=== PATIENT | male | born 1975 | race Caucasian/White ===

== ENCOUNTER 2017-12-19 16:46 | Emergency (ER) | payer BC ==
[~2017-12-19] VITALS: Ht 170.2 cm; Wt 69.9 kg
[2017-12-19 16:48] VITALS: BP 161/88
[2017-12-19] MEDS ORDERED: HYDR-3965 PO (17:22)
[2017-12-19] MEDS ORDERED: PRAV80TA3 PO (17:22)
[2017-12-19] MEDS ORDERED: MUSCLE RELAXER (17:22)
[2017-12-19] MEDS ORDERED: OMEP40CA37 PO (17:22)
[2017-12-19] MEDS ORDERED: CEPH500C5 PO (18:11)
[2017-12-19] MEDS ORDERED: SULF1TAB49 PO (18:11)
== END 2017-12-19 18:37 | disposition home or self-care (01) ==
LOC: ER 16:46
DX: L98.9 Disorder of the skin and subcutaneous tissue, unspecified (principal); R59.1 Generalized enlarged lymph nodes; Z79.899 Other long term (current) drug therapy
CPT/HCPCS: 99283